=== PATIENT | male | born 1950 | race African-American/Black ===

== ENCOUNTER 2019-05-14 08:21 | Emergency (ER) | payer OTHER, MEDICARE ==
[~2019-05-14] VITALS: Ht 180.3 cm; Wt 79.0 kg
[2019-05-14] MEDS ORDERED: SODIUM CHLORIDE 0.9% 1,000 ML IV ONE ×2 (09:00→10:15)
[2019-05-14] MEDS ORDERED: INSULIN REGULAR (HUMULIN R) 300UNITS/3ML IV ONE (09:00)
[2019-05-14] MEDS ORDERED: INSULIN REGULAR (DRIP) 100 UNITS in SODIUM CHLORIDE 0.9% 100 ML IV ONE ×2 (09:00→09:15)
[2019-05-14 09:01] LABS: BASOPHILS % 0.2 % (0.0-2.0); EOSINOPHILS % 0.1 % (0.0-5.0); HEMATOCRIT. 43.1 % (42.0-52.0); HEMOGLOBIN. 13.9 g/dL (14.0-18.0); LYMPHOCYTES % 11.2 % (20.0-50.0); MEAN CORPUSCULAR HEMOGLOBIN 29.3 pg (28.0-32.0); MEAN CORPUSCULAR VOLUME 91.1 fL (80.0-94.0); MEAN PLATELET VOLUME 8.7 fl (7.4-10.4); MONOCYTES % 5.5 % (2.0-8.0); PLATELET 355 x1000/uL (130-400); RED BLOOD CELL COUNT 4.73 mill/uL (4.7-6.1); RED CELL DISTRIBUTION WIDTH 15.2 % (11.6-14.6)
[2019-05-14 09:06] LABS: CHLORIDE 94 mEq/L (98-107)
[2019-05-14 09:08] LABS: PROTHROMBIN TIME 10.1 sec (9.6-11.0)
[2019-05-14 09:16] LABS: BG CARBOXYHEMOGLOBIN 0.2 % (0.5-1.5); BG DEOXYHEMOGLOBIN 1.5 % (0.0-5.0); BG FRACTION INSPIRED OXYGEN 34; BG METHEMOGLOBIN 0.2 % (0.0-1.5); BG OXYGEN SATURATION 98.5 % (92.0-98.5); BG OXYHEMOGLOBIN 98.1 % (94.0-97.0); BG PCO2 < 8.9 mmHg (35.0-45.0); BG PH 7.206 (7.350-7.450); BG PO2 159.8 mmHg (75.0-100.0); BG SAMPLE SITE RIGHT BRACHIAL; BG TOTAL HEMOGLOBIN 12.9 g/dL (12.0-18.0); BG VENT MODE NASAL CANNULA
[2019-05-14 09:44] LABS: BETA HYDROXYBUTYRATE 12.7 mMol/L (0.0-0.3)
[2019-05-14 11:43] VITALS: BP 158/81
== END 2019-05-14 12:00 | disposition short-term general hospital (02) ==
LOC: ER 08:21 → CANBEDREQ 11:56 → ER 12:00
DX: E10.10 Type 1 diabetes mellitus with ketoacidosis without coma (principal); E10.65 Type 1 diabetes mellitus with hyperglycemia; E86.0 Dehydration; R06.82 Tachypnea, not elsewhere classified; R06.02 Shortness of breath
CPT/HCPCS: 36415; 36600; 80048; 80053; 82010; 82375; 82962; 83690; 85025; 85610; 96361; 96365; 96366; 96376; 99285; J1815; J7030; J7050; Z7610